=== PATIENT | female | born 1950 | race Caucasian/White ===

== ENCOUNTER → 2016-10-24 | Outpatient (CLI) | payer OTHER ==
--- NOTE | 2016-10-25 10:11 | MM ---
Reason for exam: screening (asymptomatic). History: Cyst aspiration of the left breast. Physical Findings: A clinical breast exam by your physician is recommended on an annual basis and results should be correlated with mammographic findings. MG Screening Mammo w CAD Bilateral CC and MLO view(s) were taken. XCCL view(s) were taken of the left breast. No prior studies available for comparison. The breast tissue is heterogeneously dense. This may lower the sensitivity of mammography. Finding: There are typically benign round calcifications in both breasts. There is no discrete abnormality. ASSESSMENT: Benign, BI-RAD 2 RECOMMENDATION: Routine screening mammogram of both breasts in 1 year.
== END | disposition home or self-care (01) ==
LOC: RADMAMWWP 13:09
PROVIDERS: ATTEND Family Medicine
DX: Z12.31 Encounter for screening mammogram for malignant neoplasm of breast (principal)

== ENCOUNTER → 2021-05-15 | Outpatient (CLI) | payer MEDICARE, OTHER ==
--- NOTE | 2021-05-16 11:15 | MM ---
Reason for exam: screening (asymptomatic). Last mammogram was performed 4 years and 7 months ago. History: Patient is postmenopausal and is nulliparous. Cyst aspiration of the left breast. Took hormonal contraceptives for 4 years. Physical Findings: A clinical breast exam by your physician is recommended on an annual basis and results should be correlated with mammographic findings. MG 3D Screening Mammo W/Cad Bilateral CC and MLO view(s) were taken. Prior study comparison: October 24, 2016, bilateral MG screening mammo w CAD. Bilateral calcifications. No significant changes when compared with prior studies. ASSESSMENT: Benign, BI-RAD 2 RECOMMENDATION: Routine screening mammogram of both breasts in 1 year.
== END ==
LOC: RADMAMWWP 10:28
PROVIDERS: ATTEND Internal Medicine
DX: Z12.31 Encounter for screening mammogram for malignant neoplasm of breast (principal); Z78.0 Asymptomatic menopausal state; Z79.3 Long term (current) use of hormonal contraceptives
CPT/HCPCS: 77063; 77067

== ENCOUNTER 2021-06-12 07:08 | Day surgery (SDC) | payer MEDICARE, OTHER ==
[2021-06-08 08:11] VITALS: BMI 36.0
[~2021-06-12 07:08] MED LIST: DEXAMETHASONE SOD PHOSPHATE 4 MG/ML 1 ML VIAL IV ONE; HYDROmorphone 0.5 MG/0.5 ML SYRINGE IVP PRN; LACTATED RINGERS 1,000 ML IV SCH; ONDANSETRON 4 MG/2 ML VIAL IVP ONE
[2021-06-12 07:43] VITALS: TEMP 98.7
[2021-06-12 07:49] LABS: Glucose,Whole Blood 166 mg/dL (75-99)
[2021-06-12] MEDS ORDERED: PROPOFOL 10 MG/ML 20 ML VIAL IV ONE (08:07)
[2021-06-12] MEDS ORDERED: PHENYLEPHRINE-0.9% NACL SYG 1,000 MCG/10 ML SYRINGE ONE (08:07)
[2021-06-12] MEDS ORDERED: IV FLUID CONTINUATION 1,000 ML IV ONE (08:40)
--- NOTE | 2021-06-12 08:45 | P.GSHP ---
History of Present Illness H&P Date: 06/12/21 Chief Complaint: Positive cologuard 70-year-old female here today for colonoscopy. Had a recent stool study that was positive. She does not see blood. Last colonoscopy 5 years ago. No family history of colon cancer. Past Medical History Past Medical History: Atrial Fibrillation, Diabetes Mellitus, Hyperlipidemia, Hypertension Additional Past Medical History / Comment(s): positive cologard, blood in stool, fatty liver, hiatal hernia History of Any Multi-Drug Resistant Organisms: None Reported Past Surgical History: Breast Surgery, Orthopedic Surgery Additional Past Surgical History / Comment(s): colonoscopy, trigger finger surg., left carpal tunnel surg., breast biopsy, fatty tumor removed from back Past Anesthesia/Blood Transfusion Reactions: No Reported Reaction Smoking Status: Former smoker Medications and Allergies Home Medications Medication Instructions Recorded Confirmed Type Atorvastatin [Lipitor] 40 mg PO HS 06/08/21 06/08/21 History Glimepiride [Amaryl] 2 mg PO AC-BRKFST 06/08/21 06/08/21 History Metoprolol Tartrate [Lopressor] 100 mg PO DAILY 06/08/21 06/08/21 History Rivaroxaban [Xarelto] 20 mg PO DAILY 06/08/21 06/08/21 History lisinopriL [Zestril] 40 mg PO HS 06/08/21 06/08/21 History metFORMIN HCL [Glucophage] 500 mg PO BID 06/08/21 06/08/21 History Allergies Allergy/AdvReac Type Severity Reaction Status Date / Time Penicillins Allergy very Verified 06/12/21 07:36 anxious morphine AdvReac Rash/Hives Verified 06/12/21 07:36 Surgical - Exam Vital Signs Temp Pulse Resp BP Pulse Ox 98.7 F 105 H 16 152/76 97 06/12/21 07:41 06/12/21 07:41 06/12/21 07:41 06/12/21 07:41 06/12/21 07:41 Physical exam: General: Well-developed, well-nourished HEENT: Normocephalic, sclerae nonicteric Abdomen: Nontender, nondistended Extremities: No edema Neuro: Alert and oriented Results - Labs Abnormal Lab Results - Last 24 Hours (Table) 06/12/21 Range/Units 07:47 POC Glucose (mg/dL) 166 H (75-99) mg/dL Assessment and Plan (1) Positive colorectal cancer screening using Cologuard test Narrative/Plan: Will proceed with colonoscopy Current Visit: Yes Status: Acute Code(s): R19.5 - OTHER FECAL ABNORMALITIES SNOMED Code(s): 440371001
--- NOTE | 2021-06-12 08:47 | P.PCN ---
Date of Procedure: 06/12/21 Procedure(s) Performed: PREOPERATIVE DIAGNOSIS: Positive cologuard POSTOPERATIVE DIAGNOSIS: Possible ascending colon polyp, diverticulosis, slightly poor prep PROCEDURE: Colonoscopy with biopsy ANESTHESIA: MAC SURGEON: Leeroy Wetzel M.D. SPECIMENS: And ascending colon polyp ENDOSCOPIC PROCEDURE: The patient was placed on the endoscopy table in the left decubitus position. The Olympus colonoscope was inserted into the anus and passed under direct visualization to the base of the cecum. The appendiceal orifice was visualized. From that point the scope was slowly withdrawn inspecting all surfaces carefully. There were no neoplastic inflammatory or polypoid lesions throughout the cecum. In the mid ascending colon there was some thickened area on a fold. This almost appeared like scar tissue from prior polypectomy. A biopsy was taken to rule out adenomatous tissue. This measured approximately 1 x 1 cm. The remainder of the transverse descending sigmoid and rectum revealed no definite neoplastic or polypoid lesions. The patient's prep was slightly suboptimal limiting our visualization somewhat. There was extensive left-sided diverticulosis. Digital rectal examination was normal. The patient was taken to the recovery room in stable condition per anesthesia guidelines. RECOMMENDATIONS: Await biopsy results. If adenomatous tissue identified will require short-term follow-up.
[2021-06-12 08:48] VITALS: RESP 18
[2021-06-12 09:08] VITALS: BP 100/63; PULSE 83
== END 2021-06-12 09:27 | disposition home or self-care (01) ==
LOC: ORWHC2ENDO 07:08
PROVIDERS: ATTEND Surgery
DX: K63.5 Polyp of colon (principal); K57.30 Diverticulosis of large intestine without perforation or abscess without bleeding; I48.91 Unspecified atrial fibrillation; E11.9 Type 2 diabetes mellitus without complications; E78.5 Hyperlipidemia, unspecified; K92.1 Melena; I10 Essential (primary) hypertension; K76.0 Fatty (change of) liver, not elsewhere classified; K44.9 Diaphragmatic hernia without obstruction or gangrene; Z98.890 Other specified postprocedural states; Z87.891 Personal history of nicotine dependence; Z97.2 Presence of dental prosthetic device (complete) (partial); Z79.01 Long term (current) use of anticoagulants; Z79.84 Long term (current) use of oral hypoglycemic drugs; Z79.899 Other long term (current) drug therapy; Z88.5 Allergy status to narcotic agent; Z88.0 Allergy status to penicillin
CPT/HCPCS: 88305; 45380; J2370; J2704

== ENCOUNTER → 2021-07-03 | Outpatient (CLI) | payer MEDICARE, OTHER ==
--- NOTE | 2021-07-03 08:58 | BD ---
EXAMINATION TYPE: Axial Bone Density DATE OF EXAM: 07/03/2021 COMPARISON: NONE CLINICAL HISTORY: Postmenopausal female. Age related osteoporosis per order. Height: 5 FT 8 IN Weight: 229 FRAX RISK QUESTIONS: Alcohol (3 or more units per day): NO Family History (Parent hip fracture): NO Glucocorticoids (More than 3mos): NO (Ex: prednisone, prednisolone, methylprednisolone, dexamethasone, and hydrocortisone). History of Fracture in Adulthood: NO Secondary Osteoporosis: 1. Type 1 Diabetes: TYPE 2 2. Hyperthyroidism: NO 3. Menopause before 45: PART AGE 37 4. Malnutrition: NO 5. Chronic liver disease: NO Rheumatoid Arthritis: NO Current Tobacco Use: NO RISK FACTORS HISTORY OF: Surgery to Spine/Hip(right/left)/Wrist (right/left): NO Family History of Osteoporosis: NO Active: YES Diet low in dairy products/other sources of calcium: NO Postmenopausal woman: PART AGE 37 Take estrogen and/or progesterone medications: NO Lost more than 2 inches in height since high school: NO MEDICATIONS: Additional Medications: METOPROLOL, ATORVASTATIN, METFORMIN, LISINOPRIL, XER ALTO, GLIMEPIRIDE, Additional History: CARPAL TUNNEL EXAM MEASUREMENTS: Bone mineral densitometry was performed using the [employer] System. Bone mineral density as measured about the Lumbar spine is: ----- L1-L4(G/cm2): 1.024 T Score Values are as follows: ----- L2: -2.3 ----- L3: -0.7 ----- L4: -0.8 ----- L1-L4: -1.3 BASELINE Bone mineral density about the R hip (g/cm2): 0.925 Bone mineral density about the L hip (g/cm2): 0.932 T Score values are as follows: -----R Neck: -0.8 -----L Neck: -0.8 -----R Total: -0.4 -----L Total: -0.2 BASELINE IMPRESSION: Osteopenia (T Score between -2.5 and -1). There is slightly increased risk of fracture and the patient may be considered for treatment. Re-Screen 2-5 years. NOTE: T-SCORE=SD OF THE YOUNG ADULT MEAN.
== END | disposition home or self-care (01) ==
LOC: RADBDWWP 07:42
PROVIDERS: ATTEND Internal Medicine
DX: M81.0 Age-related osteoporosis without current pathological fracture (principal); Z78.0 Asymptomatic menopausal state; Z79.84 Long term (current) use of oral hypoglycemic drugs; Z79.899 Other long term (current) drug therapy; E10.9 Type 1 diabetes mellitus without complications
CPT/HCPCS: 77080

== ENCOUNTER → 2021-10-09 | Outpatient (CLI) | payer MEDICARE, OTHER ==
--- NOTE | 2021-10-10 10:57 | P.ARTDOP ---
Arterial Doppler LOWER EXTREMITY ARTERIAL DOPPLER: DATE OF SERVICE: 10/09/2021 Reason for study: Leg weakness. Doppler waveforms: Multiphasic bilaterally throughout. Pulse volume recording: []. Pressure gradients: None of significance. Ankle-brachial indices: 0.99 bilaterally. Toe brachial indices: 0.56 on the right, 0.50 on the left Impression: Normal study. Variation in amplitude of Doppler signals suggest the possibility of arrhythmia. Mild decrease in toe pressures is most likely vasospastic in nature. Distal disease less likely..
== END | disposition home or self-care (01) ==
LOC: RADUSWWP 12:29
PROVIDERS: ATTEND Internal Medicine
DX: I73.9 Peripheral vascular disease, unspecified (principal)
CPT/HCPCS: 93922

== ENCOUNTER → 2022-06-03 | Outpatient (CLI) | payer MEDICARE, OTHER ==
--- NOTE | 2022-06-04 09:13 | MM ---
Reason for Exam: Screening (asymptomatic). Last screening mammogram was performed 12 month(s) ago. Patient History: Menarche at age 15. Patient has no children. Hysterectomy at age 38. Postmenopausal. Patient used Hormonal Contraceptives for 4 years. Cyst Aspiration on the Left side. Risk Values: Marina 5 year model risk: 1.9%. NCI Lifetime model risk: 5.9%. Prior Study Comparison: 10/24/2016 Bilateral Screening Mammogram, [facility]. 05/15/2021 Bilateral Screening Mammogram, [facility]. Tissue Density: The breast tissue is heterogeneously dense. This may lower the sensitivity of mammography. Findings: Analyzed By CAD. There is no suspicious group of microcalcifications or new suspicious mass in either breast. Overall Assessment: Benign, BI-RAD 2 Management: Screening Mammogram of both breasts in 1 year. A clinical breast exam by your physician is recommended on an annual basis and results should be correlated with mammographic findings. Electronically signed and approved by: Edilson Rodriguez M.D. Radiologis
== END | disposition home or self-care (01) ==
LOC: RADMAMWWP 06:55
PROVIDERS: ATTEND Internal Medicine
DX: Z12.31 Encounter for screening mammogram for malignant neoplasm of breast (principal); Z78.0 Asymptomatic menopausal state; Z98.890 Other specified postprocedural states
CPT/HCPCS: 77063; 77067

== ENCOUNTER → 2023-07-09 | Outpatient (CLI) | payer MEDICARE, OTHER ==
--- NOTE | 2023-07-09 13:36 | MM ---
Reason for Exam: Screening (asymptomatic). Last mammogram was performed 1 year(s) and 2 month(s) ago. Patient History: Menarche at age 15. Patient has no children. Hysterectomy at age 38. Postmenopausal. Patient used Hormonal Contraceptives for 4 years. Cyst Aspiration on the Left side. Risk Values: Marina 5 year model risk: 1.9%. NCI Lifetime model risk: 5.6%. Prior Study Comparison: 10/24/2016 Bilateral Screening Mammogram, [facility]. 05/15/2021 Bilateral Screening Mammogram, [facility]. 06/03/2022 Bilateral MG 3D screening mammo w/cad, [facility]. Tissue Density: The breast tissue is heterogeneously dense. This may lower the sensitivity of mammography. Findings: Analyzed By CAD. Increasing grouped calcifications left breast 8.0 cm from the nipple laterally middle depth. Right breast: There is no suspicious group of microcalcifications or new suspicious mass. Benign-appearing calcifications bilaterally. Overall Assessment: Benign, BI-RAD 2 Management: Diagnostic Mammogram of the left breast. [facility] will attempt to contact patient to return for supplemental views and ultrasound if indicated. Patient should continue monthly self-breast exams. A clinical breast exam by your physician is recommended on an annual basis. This exam should not preclude additional follow-up of suspicious palpable abnormalities. Note on Marina scores and lifetime risk: 1. A Marina score greater than 3% is considered moderate risk. If this is the case, consider specialist referral to assess eligibility for a risk reducing agent. 2. If overall lifetime risk for the development of breast cancer is 20% or higher, the patient may qualify for future screening with alternating mammogram and breast MRI. Electronically signed and approved by: Juan Pablo Rogers DO
--- NOTE | 2023-07-09 13:37 | BD ---
EXAMINATION TYPE: Axial Bone Density DATE OF EXAM: 07/09/2023 CLINICAL HISTORY: 72 years old Female. ICD-10 CODE: M85.852 OSTEOPENIA Height: 67 Weight: 231 FRAX RISK QUESTIONS: 5. Chronic liver disease: fatty liver disease RISK FACTORS HISTORY OF: possible broken toe, at 24 yrs old Surgery to both wrists.... Postmenopausal woman: hyst at 54 yrs Lost more than 2 inches in height since high school: yes Hyperparathyroidism: no Adrenal Insufficiency: no MEDICATIONS: Additional Medications: metformin, statin for cholesterol, bp meds, blood thinners, vit d3, astrovin 80 Additional History: hiatal hernia, A-Fib, cholesterol, hypertension, EXAM MEASUREMENTS: Bone mineral densitometry was performed using the [employer] System. Bone mineral density as measured about the Lumbar spine is: ----- L1-L4(G/cm2): 1.083 T Score Values are as follows: ----- L1: -2.0 ----- L2: -1.7 ----- L3: -0.4 ----- L4: 0.3 ----- L1-L4: -0.8 Z Score Values are as follows: ----- L1: -1.4 ----- L2: -1.1 ----- L3: 0.1 ----- L4: 0.8 ----- L1-L4: -0.3 Bone mineral density has: Increased 5.8% since study of: 07.03.2021 Bone mineral density about the R hip (g/cm2): 0.935 Bone mineral density about the L hip (g/cm2): 1.008 T Score values are as follows: -----R Neck: -0.9 -----L Neck: -0.6 -----R Total: -0.6 -----L Total: 0.0 Z Score values are as follows: -----R Neck: 0.1 -----L Neck: 0.4 -----R Total: 0.1 -----L Total: 0.7 Bone mineral density has: Increased 0.7% since study of: 07.03.2021 FRAX%s: The graph provided illustrates a 8.0% chance for a major osteoporotic fx and a 0.8% chance fo r the hips probability for fx in 10 years time. IMPRESSION: Normal (Values between +1 and -1 indicate normal bone mass). Consider repeating this study in 5 year s or sooner if there is some new clinical indication. NOTE: T-SCORE=SD OF THE YOUNG ADULT MEAN.
== END | disposition home or self-care (01) ==
LOC: RADMAMWWP 11:34
PROVIDERS: ATTEND Internal Medicine
DX: Z12.31 Encounter for screening mammogram for malignant neoplasm of breast (principal); M85.89 Other specified disorders of bone density and structure, multiple sites; Z78.0 Asymptomatic menopausal state
CPT/HCPCS: 77063; 77067; 77080

== ENCOUNTER → 2023-07-09 | Outpatient (CLI) | payer MEDICARE, OTHER ==
--- NOTE | 2023-07-09 14:08 | US ---
EXAMINATION TYPE: US arterial LE multi level DATE OF EXAM: 07/09/2023 1:44 PM CLINICAL INDICATION: Female, 72 years old with history of M79.669 EDEMA; weakness in legs after walki ng History of: Smoker: previous Hypertension: Y Diabetic: Y Hyperlipidemia: Y TIA/CVA: N Previous Vascular Surgery: N CAD: N OR: N Vascular Ulcers: N Claudication: Y Gangrene: N Doppler Waveforms: Right: Multiphasic Left: Multiphasic Right Brachial Pressure: 155 Left Brachial Pressure: 154 Ankle-Brachial Indices: Right: 1.12 Left: 1.05 Toe Brachial Indices: Right: 0.59 Left: 0.60 IMPRESSION: Normal ankle-brachial indices bilaterally.
== END | disposition home or self-care (01) ==
LOC: RADUSWWP 11:37
PROVIDERS: ATTEND Nuclear Medicine Nuclear Cardiology
DX: M79.669 Pain in unspecified lower leg (principal)
CPT/HCPCS: 93923

== ENCOUNTER → 2023-07-21 | Outpatient (CLI) | payer MEDICARE, OTHER ==
--- NOTE | 2023-07-21 13:59 | MM ---
Reason for Exam: Additional evaluation requested from abnormal screening. Last screening mammogram was performed less than 1 month ago. Patient History: Menarche at age 15. Patient has no children. Hysterectomy at age 38. Postmenopausal. Patient used Hormonal Contraceptives for 4 years. Cyst Aspiration on the Left side. Risk Values: Marina 5 year model risk: 1.9%. NCI Lifetime model risk: 5.6%. Prior Study Comparison: 05/15/2021 Bilateral Screening Mammogram, [facility]. 06/03/2022 Bilateral MG 3D screening mammo w/cad, [facility]. 07/09/2023 Bilateral MG 3D screening mammo w/cad, [facility]. Tissue Density: Left: The breast tissue is heterogeneously dense. This may lower the sensitivity of mammography. Findings: Analyzed By CAD. Multiple punctate calcifications are seen throughout the left breast. There is a loosely clustered calcifications upper outer quadrant of the left breast 8 cm from the nipple which is probably benign. Six-month follow-up is recommended. Overall Assessment: Probably benign, BI-RAD 3 Management: Diagnostic Mammogram of the left breast in 6 months. . Results were given to the patient verbally at the time of exam. Patient should continue monthly self-breast exams. A clinical breast exam by your physician is recommended on an annual basis. This exam should not preclude additional follow-up of suspicious palpable abnormalities. Note on Marina scores and lifetime risk: 1. A Marina score greater than 3% is considered moderate risk. If this is the case, consider specialist referral to assess eligibility for a risk reducing agent. 2. If overall lifetime risk for the development of breast cancer is 20% or higher, the patient may qualify for future screening with alternating mammogram and breast MRI. Electronically signed and approved by: Edilson Rodriguez M.D. Radiologis
== END | disposition home or self-care (01) ==
LOC: RADMAMWWP 13:06
PROVIDERS: ATTEND Internal Medicine
DX: R92.332 Mammographic heterogeneous density, left breast (principal); R92.8 Other abnormal and inconclusive findings on diagnostic imaging of breast; Z78.0 Asymptomatic menopausal state
CPT/HCPCS: 77065; G0279; 77061

== ENCOUNTER → 2024-01-12 | Outpatient (CLI) | payer MEDICARE, OTHER ==
--- NOTE | 2024-01-12 07:53 | MM ---
Reason for Exam: Follow-up at short interval from prior study. Last screening mammogram was performed 6 month(s) ago. Patient History: Menarche at age 15. Patient has no children. Hysterectomy at age 38. Postmenopausal. Hormonal Contraceptives for 6 months. Cyst Aspiration on the Left side. Risk Values: Marina 5 year model risk: 1.9%. NCI Lifetime model risk: 5.4%. Prior Study Comparison: 10/24/2016 Bilateral Screening Mammogram, [facility]. 05/15/2021 Bilateral Screening Mammogram, [facility]. 06/03/2022 Bilateral MG 3D screening mammo w/cad, [facility]. 07/09/2023 Bilateral MG 3D screening mammo w/cad, [facility]. 07/21/2023 Left MG 3D work up w/cad , [facility]. Tissue Density: The breasts are heterogeneously dense, which may obscure small masses. Findings: Analyzed By CAD. Numerous bilateral benign oil cyst calcifications are unchanged. Chronic nodularity in the right breast. Grouped calcifications approximately 2:00 left breast middle depth are slightly increasing in the interval. These were worked up on magnification views on the prior exam. Tissue sampling is recommended. Overall Assessment: Suspicious, BI-RAD 4 Management: Stereotactic Core Biopsy of the left breast. Results were given to the patient verbally at the time of exam. Electronically signed and approved by: Georgina Christensen M.D. Radiologist
== END | disposition home or self-care (01) ==
LOC: RADMAMWWP 06:53
PROVIDERS: ATTEND Internal Medicine
DX: R92.333 Mammographic heterogeneous density, bilateral breasts (principal); R92.1 Mammographic calcification found on diagnostic imaging of breast; Z78.0 Asymptomatic menopausal state
CPT/HCPCS: 77066; G0279; 77062

== ENCOUNTER → 2024-01-22 | Outpatient (CLI) | payer MEDICARE, OTHER | LOC: WWCWWP 06:47 | PROVIDERS: ATTEND Surgery | DX: R92.8 Other abnormal and inconclusive findings on diagnostic imaging of breast (principal); R92.0 Mammographic microcalcification found on diagnostic imaging of breast; I10 Essential (primary) hypertension; E11.9 Type 2 diabetes mellitus without complications; I48.91 Unspecified atrial fibrillation; B48.8 Other specified mycoses; Z88.0 Allergy status to penicillin; Z88.5 Allergy status to narcotic agent; Z87.891 Personal history of nicotine dependence; Z79.84 Long term (current) use of oral hypoglycemic drugs; Z79.899 Other long term (current) drug therapy; Z79.01 Long term (current) use of anticoagulants ==

== ENCOUNTER → 2024-01-22 | Day surgery (SDC) | payer MEDICARE, OTHER ==
[~2024-01-22] MED LIST changes: +ALPRAZolam 0.25 MG TAB PO PRN; -DEXAMETHASONE SOD PHOSPHATE 4 MG/ML 1 ML VIAL IV ONE; -HYDROmorphone 0.5 MG/0.5 ML SYRINGE IVP PRN; -LACTATED RINGERS 1,000 ML IV SCH; -ONDANSETRON 4 MG/2 ML VIAL IVP ONE
--- NOTE | 2024-01-22 08:12 | P.GSCN ---
History of Present Illness Consult date: 01/22/24 Reason for Consult: Abnormal left breast mammogram Requesting physician: Grace Butcher History of present illness: Jemima is a 73-year-old female seen in consultation for Dr. Gavin regarding an abnormal left breast mammogram. She underwent a bilateral mammogram on 01-12-2024. This revealed numerous bilateral benign oil cyst calcifications as well as chronic nodularity in the right breast. Grouped calcifications approximately 2:00 left breast was slightly increasing in the interval since her last mammogram. Stereotactic core biopsy was recommended. She does not feel any new lumps masses or nodules of concern in either breast. This was found on radiograph. She did have a left breast biopsy in the remote past which was a cyst. She has not had any recent trauma or infection in her breast. Caffeine: 2 cups/day nicotine: stopped smoking 17 years ago chocolate: occasional BCP: 2 years hormoens: none FAmily HIstory: no cancer Hormonal History: menarche: 16 G1A1 menopause: hysterectomy and one ovary, has had symptoms of menopause since then Surgical History: hysterectomy and one ovary removed lump back lump breast left tonsil appy Medical History: hiatal hernia a FIb: on xeralto HTN diabetic Social History: Nicotine: Negative Alcohol: Negative Drugs: Negative Review of Systems - Constitutional Reports sweats - EENT EENT Comment(s): cataract surgery Ears: bilateral: tinnitus Ears, nose, mouth and throat: Reports headache - Breasts bilateral: as per HPI - Cardiovascular Denies chest pain, Denies shortness of breath - Respiratory Denies cough, Denies 7 - Gastrointestinal Reports as per HPI, Reports constipation - Genitourinary Genitourinary: Denies dysuria, Denies hematuria Menstruation: Reports post hysterectomy - Musculoskeletal Reports as per HPI - Integumentary Reports pruritus - Neurological Reports headaches, Denies syncope - Psychiatric Reports depression - Endocrine Reports as per HPI - Hematologic/Lymphatic Reports as per HPI - Allergic/Immunologic Reports as per HPI Past Medical History Past Medical History: Atrial Fibrillation, Diabetes Mellitus, Hyperlipidemia, Hypertension Additional Past Medical History / Comment(s): Type 2 DM. History of Any Multi-Drug Resistant Organisms: None Reported Past Surgical History: Hysterectomy Additional Past Surgical History / Comment(s): Tooth extractions with denture Past Anesthesia/Blood Transfusion Reactions: No Reported Reaction Past Psychological History: No Psychological Hx Reported Smoking Status: Former smoker Past Alcohol Use History: None Reported Additional Past Alcohol Use History / Comment(s): quit 15-18 years ago Past Drug Use History: None Reported Medications and Allergies Home Medications Medication Instructions Recorded Confirmed Type Atorvastatin [Lipitor] 40 mg PO HS 06/08/21 01/22/24 History Glimepiride [Amaryl] 2 mg PO AC-BRKFST 06/08/21 01/22/24 History Metoprolol Tartrate [Lopressor] 100 mg PO DAILY 06/08/21 01/22/24 History Rivaroxaban [Xarelto] 20 mg PO DAILY 06/08/21 01/22/24 History lisinopriL [Zestril] 40 mg PO HS 06/08/21 01/22/24 History metFORMIN HCL [Glucophage] 500 mg PO DAILY 06/08/21 01/22/24 History Allergies Allergy/AdvReac Type Severity Reaction Status Date / Time Penicillins Allergy very Verified 01/22/24 07:24 anxious morphine AdvReac Rash/Hives Verified 01/22/24 07:24 Surgical - Exam Vital Signs Temp Pulse Resp BP 98.1 F 102 H 16 147/73 01/22/24 07:26 01/22/24 07:26 01/22/24 07:26 01/22/24 07:26 - General moderate distress - Eyes normal ocular movement - Neck trachea midline - Respiratory normal respiratory effort, clear to auscultation - Cardiovascular Heart Sounds: normal: S1, S2 - Abdomen Abdomen: soft, non tender, no guarding, no rigid, no rebound - Integumentary normal turgor - Neurologic no disoriented, no combative - Musculoskeletal normal gait - Psychiatric oriented to time, oriented to person, oriented to place, speech is normal, memory intact Breast Exam: BRA: 44C inspection: Bilateral grade 3 ptosis Palpation: Right breast: Multi positional exam fibrocystic changes no dominant masses or nodules of concern Right axilla: No adenopathy of concern Left breast: Multi positional exam fibrocystic changes no dominant masses or nodules of concern Left axilla: No adenopathy of concern Bilateral fungal infection under both breast Results Mammogram personally reviewed with Dr. Christensen, microcalcifications of concern lateral aspect of left breast stereotactic core biopsy recommended Assessment and Plan Assessment: Pression: Hypertension Diabetes Atrial fibrillation Abnormal left breast mammogram Fungal infection under both breast Plan: Stereotactic core biopsy Nystatin apply to fungal infection under both breast Risk and benefits of stereotactic core biopsy discussed with the patient. Risk include but are not limited to bleeding, infection, reaction to the anesthetic. Additionally if tissue acquisition is insufficient or discordant then further tissue acquisition may be necessary. The patient understands and understands that a small clip will be left at the site to madiha the area. She wishes to proceed. Dr. Butcher
[2024-01-22 08:21] VITALS: RESP 16; TEMP 98.1
[2024-01-22 09:19] VITALS: BP 123/90; PULSE 103
--- NOTE | 2024-01-23 09:20 | MM ---
Date of Procedure: 01/22/24 Preoperative Diagnosis: Microcalcifications of concern left breast Postoperative Diagnosis: Same Procedure(s) Performed: Left breast stereotactic core biopsy Anesthesia: local Surgeon: Angelika Hair Pathology: other (Left breast tissue with microcalcifications of concern) Condition: stable Disposition: same day Indications for Procedure: Increasing microcalcifications left breast lateral aspect Operative Findings: Radiograph of specimen reveals breast tissue with microcalcifications of concern Description of Procedure: Jemima is a 73-year-old female who had a mammogram performed which revealed microcalcifications of concern in the left breast. This was reviewed with Dr. Christensen from radiology and stereotactic core biopsy was recommended. Risk and benefits of the procedure were discussed with the patient. Physical exam was done no discrete lesions were palpated. The patient wished to have the procedure performed. Following informed consent the patient was taken to the stereotactic core biopsy room. She was positioned in the upright chair. A lateral to medial approach was used in the left breast. The area of concern was identified. The lesion was targeted. The skin was prepped using chlorhexidine. 20 cc of 1% lidocaine were used to anesthetize the area of concern. A 9 gauge vacuum-assisted core rotating biopsy needle was driven to the correct coordinates. A prefire film was obtained. The needle was noted to be in the correct location. The needle was fired. A post fire film was obtained. The needle was noted to be in the correct location. 14 core specimens were obtained. Radiograph of the specimen revealed the lesion of concern had been adequately sampled. A secure madiha Top- Hat clip was deployed. Post procedure radiograph revealed the clip to be in the correct location. The specimen was sent to pathology. The patient will follow- up with Dr. Carter in 1 week. [facility]
== END ==
LOC: RADMAMWWP 06:48
PROVIDERS: ATTEND Surgery
DX: N60.12 Diffuse cystic mastopathy of left breast (principal); R92.8 Other abnormal and inconclusive findings on diagnostic imaging of breast; E11.9 Type 2 diabetes mellitus without complications; E78.5 Hyperlipidemia, unspecified; I10 Essential (primary) hypertension; I48.91 Unspecified atrial fibrillation; Z79.01 Long term (current) use of anticoagulants; Z79.84 Long term (current) use of oral hypoglycemic drugs; Z87.891 Personal history of nicotine dependence; Z88.0 Allergy status to penicillin; Z88.5 Allergy status to narcotic agent; Z90.710 Acquired absence of both cervix and uterus; Z90.721 Acquired absence of ovaries, unilateral; Z79.899 Other long term (current) drug therapy
CPT/HCPCS: 88305; 19081; A4648; J2001

== ENCOUNTER → 2024-01-30 | Outpatient (CLI) | payer MEDICARE, OTHER ==
--- NOTE | 2024-01-30 11:44 | P.PN ---
Subjective Progress Note Date: 01/30/24 Principal diagnosis: Fibrocystic breast changes History of present illness: Jemima is a 73-year-old female seen in consultation for Dr. Butcher regarding an abnormal left breast mammogram. She underwent a bilateral mammogram on 01-12-2024. This revealed numerous bilateral benign oil cyst calcifications as well as chronic nodularity in the right breast. Grouped calcifications approximately 2:00 left breast was slightly increasing in the interval since her last mammogram. Stereotactic core biopsy was recommended. She does not feel any new lumps masses or nodules of concern in either breast. This was found on radiograph. She did have a left breast biopsy in the remote past which was a cyst. She has not had any recent trauma or infection in her breast. She underwent a stereotactic core biopsy of the left breast on 01-22-2024. This revealed benign mammary tissue with fibrocystic change, focal fibrosis and focal microcalcification. She tolerated the procedure without difficulty. Objective - Constitutional General appearance: Present: cooperative - EENT Eyes: Present: EOMI - Neck Neck: Present: normal ROM - Respiratory Respiratory: bilateral: CTA - Integumentary Integumentary Comment(s): Ecchymosis left breast at biopsy site, no evidence of infection or hematoma - Musculoskeletal Musculoskeletal: Present: gait normal - Psychiatric Psychiatric: Present: A&O x's 3, appropriate affect, intact judgment & insight Assessment and Plan Assessment: Patient: Patient tolerated left breast stereotactic core biopsy without difficulty, she did develop some ecchymosis at the site which is resolving Pathology benign concordant Plan: Repeat left breast mammogram in 6 months with appointment at that time The patient brings to my attention a note which she received from Dr. Lord office which appears that I was prescribing diabetic medication, I have discussed with her that that is not from me and that she will follow that with Dr. Butcher.
[2024-01-30 12:02] VITALS: BP 160/92; PULSE 70; RESP 17; TEMP 97.8
== END ==
LOC: WWCWWP 11:31
PROVIDERS: ATTEND Surgery
DX: R92.0 Mammographic microcalcification found on diagnostic imaging of breast (principal); N60.11 Diffuse cystic mastopathy of right breast; N60.12 Diffuse cystic mastopathy of left breast; N63.10 Unspecified lump in the right breast, unspecified quadrant; R58 Hemorrhage, not elsewhere classified; Z88.0 Allergy status to penicillin; Z88.5 Allergy status to narcotic agent

== ENCOUNTER → 2024-07-13 | Outpatient (CLI) | payer MEDICARE, OTHER ==
--- NOTE | 2024-07-13 09:27 | MM ---
Reason for Exam: Follow-up at short interval from prior study. Last screening mammogram was performed 6 month(s) ago. Patient History: Menarche at age 15. Patient has no children. Hysterectomy at age 38. Postmenopausal. Hormonal Contraceptives for 6 months. 01/22/2024, Benign MG stereo VAD BX LT on the left side. Cyst Aspiration on the Left side. Risk Values: Marina 5 year model risk: 2.3%. NCI Lifetime model risk: 6.3%. Prior Study Comparison: 07/09/2023 Bilateral MG 3D screening mammo w/cad, [facility]. 07/21/2023 Left MG 3D work up w/cad [facility], [facility]. 01/12/2024 Bilateral MG 3D diag mammo w/cad [facility], [facility]. Tissue Density: Left: The breasts are heterogeneously dense, which may obscure small masses. Findings: Analyzed By CAD. The pattern is stable. Surgical core marker is within the upper outer mid left breast. There are scattered benign calcifications present throughout the left breast. Parenchymal pattern is stable. No suspicious groups of microcalcifications, spiculated or lobular masses, architectural distortion or other secondary signs of malignancy are mammographically apparent. Overall Assessment: Benign, BI-RAD 2 Management: Screening Mammogram of both breasts in 6 months. A negative mammogram report should not preclude additional follow up of suspicious palpable abnormalities. Patient should continue monthly self breast exam. A clinical breast exam by your physician is recommended on an annual basis and results should be correlated with mammographic findings. Note on Marina scores and lifetime risk: 1. A Marina score greater than 3% is considered moderate risk. If this is the case, consider specialist referral to assess eligibility for a risk reducing agent. 2. If overall lifetime risk for the development of breast cancer is 20% or higher, the patient may qualify for future screening with alternating mammogram and breast MRI. [facility], , 07/13/2024 9:24 AM. Electronically signed and approved by: Kaleb Morgan D.O. Radiologis
== END | disposition home or self-care (01) ==
LOC: RADMAMWWP 08:38
PROVIDERS: ATTEND Surgery
DX: R92.8 Other abnormal and inconclusive findings on diagnostic imaging of breast (principal); Z78.0 Asymptomatic menopausal state; R92.332 Mammographic heterogeneous density, left breast
CPT/HCPCS: 77065; G0279; 77061